=== PATIENT | female | born 1995 | race Caucasian/White ===

== ENCOUNTER 2019-01-30 07:55 | Emergency (ER) | payer BC ==
[~2019-01-30] VITALS: Ht 157.5 cm; Wt 46.0 kg
[2019-01-30 08:05] VITALS: Ht 157.5 cm; Wt 46.0 kg
[2019-01-30] MEDS ORDERED: KETOROLAC 15 MG INJ IV STA (08:17)
[2019-01-30] MEDS ORDERED: ONDANSETRON 4 MG INJ IV STA (08:17)
[2019-01-30] MEDS ORDERED: SOD CHLORIDE 0.9% 1,000 ML IV STA (08:17)
--- NOTE | 2019-01-30 08:26 | ERD ---
ER Documentation Chief Complaint Chief Complaint sore throat, feverish vomitting x 1 week HPI This is a 23-year-old generally healthy woman complaining of sore throat, congestion, cough, generalized weakness and tactile fevers x1 week. She denies vomiting or diarrhea but does have some nausea, she has had no blood per rectum or melena, no dysuria, no complaints of chest pain or shortness of breath, no rash, no recent antibiotic use or recent travel. Patient states she is prone to strep throat and thinks she may have strep throat today. ROS All systems reviewed and are negative except as per history of present illness. Medications Home Meds Active Scripts Ibuprofen* (Motrin*) 600 Mg Tab, 600 MG PO Q8 PRN for PAIN AND/OR INFLAMMATION, #30 TAB Prov:JONG BENTLEY MD 01/30/19 Cephalexin* (Keflex*) 500 Mg Capsule, 500 MG PO QID for 5 Days, CAP Prov:JONG BENTLEY MD 01/30/19 Allergies Allergies: Coded Allergies: No Known Allergy (Unverified , 01/30/19) FmHx Family History: No diabetes Physical Exam Vitals Vital Signs Date Temp Pulse Resp B/P (MAP) Pulse Ox O2 O2 Flow FiO2 Time Delivery Rate 01/30/19 98.5 63 20 105/52 96 Room Air 10:36 (69) 01/30/19 98.4 97 19 116/57 100 08:05 (76) Physical Exam GENERAL: Well-developed, well-nourished, well-hydrated, in no apparent distress, looks nontoxic in appearance HEENT: Moist mucous membranes, pink conjunctiva, no cervical spine tenderness or step-off deformities, no goiter, no jaundice or icterus, extraocular movements intact without pain. No submandibular induration, and no pharyngeal erythema NEURO: Alert and oriented 3, cranial nerves II through XII intact bilaterally, pupils equal round reactive to light, no focal deficits or facial asymmetry, sensation intact distally Strength 5/5 in upper and lower extremities bilaterally CARDIAC: Regular rate and rhythm, no murmurs rubs or gallops LUNGS: Clear bilaterally no wheezing crackles or stridor ABDOMEN: Soft nontender, no guarding, no rigidity, no rebound, no psoas sign no obturator sign. Normoactive bowel sounds SKIN: Warm and dry to touch, no abrasions, contusions, or hematomas, no lacerations, no ecchymosis, no target lesions, and without ulcers EXTREMITIES: No clubbing cyanosis or edema, calves are bilaterally symmetrical, no Homans sign, no popliteal cord sign. Distal pulses equal and bilateral PSYCH: Normal affect without agitation or irritability Result Diagram: 01/30/1922 01/30/19 0822 Results 24 hrs Laboratory Tests Test 01/30/19 08:21 01/30/19 08:22 01/30/19 08:25 Urine Color YELLOW Urine Clarity CLOUDY Urine pH 6.0 Urine Specific [place] 1.020 Urine Ketones NEGATIVE mg/dL Urine Nitrite NEGATIVE mg/dL Urine Bilirubin NEGATIVE mg/dL Urine Urobilinogen 1+ mg/dL Urine Leukocyte Esterase 1+ Neela/ul Urine Microscopic RBC 5 /HPF Urine Microscopic WBC 6 /HPF Urine Squamous Epithelial Cells MANY /HPF Urine Bacteria FEW /HPF Urine Mucus FEW /HPF Urine Hemoglobin 1+ mg/dL Urine Glucose NEGATIVE mg/dL Urine Total Protein NEGATIVE mg/dl White Blood Count 11.7 10^3/ul Red Blood Count 4.88 10^6/ul Hemoglobin 15.6 g/dl Hematocrit 47.7 % Mean Corpuscular Volume 97.7 fl Mean Corpuscular Hemoglobin 32.0 pg Mean Corpuscular 32.7 g/dl Hemoglobin Concent Red Cell Distribution Width 12.8 % Platelet Count 391 10^3/UL Mean Platelet Volume 8.5 fl Immature Granulocytes % 0.200 % Neutrophils % 57.0 % Lymphocytes % 33.1 % Monocytes % 7.0 % Eosinophils % 1.8 % Basophils % 0.9 % Nucleated Red Blood Cells % 0.0 /100WBC Immature Granulocytes # 0.020 10^3/ul Neutrophils # 6.7 10^3/ul Lymphocytes # 3.9 10^3/ul Monocytes # 0.8 10^3/ul Eosinophils # 0.2 10^3/ul Basophils # 0.1 10^3/ul Nucleated Red Blood Cells # 0.0 10^3/ul Sodium Level 144 mmol/L Potassium Level 4.0 mmol/L Chloride Level 105 mmol/L Carbon Dioxide Level 26 mmol/L Anion Gap 13 Blood Urea Nitrogen 11 mg/dl Creatinine 0.63 mg/dl Est Glomerular Filtrat > 60 mL/min Rate mL/min Glucose Level 86 mg/dl Calcium Level 10.0 mg/dl Total Bilirubin 0.5 mg/dl Direct Bilirubin 0.00 mg/dl Indirect Bilirubin 0.5 mg/dl Aspartate Amino 17 IU/L Transf (AST/SGOT) Alanine 12 IU/L Aminotransferase (ALT/SGPT) Alkaline Phosphatase 65 IU/L Total Protein 9.4 g/dl Albumin 5.2 g/dl Globulin 4.20 g/dl Albumin/Globulin Ratio 1.23 Lipase 32 U/L POC Beta HCG, Qualitative NEGATIVE Current Medications Medications Dose Sig/Jasvir Start Time Status Last (Trade) Ordered Route PRN Stop Time Admin Dose Reason Admin Sodium 1,000 ml @ Q1H STAT 01/30/19 DC 01/30/19 Chloride 1,000 mls/hr IV 08:17 08:30 01/30/19 09:16 Ondansetron 4 mg ONCE STAT 01/30/19 DC 01/30/19 HCl (Zofran IV 08:17 08:31 Inj) 01/30/19 08:24 Ketorolac 15 mg ONCE STAT 01/30/19 DC 01/30/19 Tromethamine IV 08:17 08:31 (Toradol) 01/30/19 08:24 Ceftriaxone 50 ml @ ONCE ONCE 01/30/19 DC 01/30/19 Sodium 100 mls/hr IVPB 10:00 09:52 01/30/19 10:29 Procedures/MDM IV line was established patient was placed on equipment monitor phototypesetting rhythm strip revealed a sinus rhythm at about 80 bpm with upright P and T waves. Patient was afebrile Administered 1 L normal saline IV, Toradol 15 mg IV, Zofran 4 mg IV CBC and electrolytes were normal, test negative, urinalysis was positive for infection. I administered ceftriaxone 1 g IV One AP view of the chest performed, read by me reveals no acute infiltrates, normal mediastinum, sharp costophrenic and cardiac borders, no air under the diaphragm. Otherwise unremarkable chest x-ray. Rapid strep test was negative Differential diagnoses considered, included but not limited to acute coronary syndrome, pulmonary embolism, aortic dissection, abdominal aortic aneurysm, sepsis, stroke, meningitis, encephalitis, pneumonia, appendicitis, cholecystit is, bowel obstruction, pyelonephritis, nephrolithiasis, cystitis, as well as metabolic, hematologic, and electrolyte abnormalities. As well as abscess, cellulitis, fractures, and dislocations. Patient feels much better at this time, and vital signs are normal, symptoms have improved. I did give strict instructions to return to the ED if symptoms continue or worsen, patient will otherwise follow-up with primary care physician. Patient understood instructions and agreed to plan. Disclaimer: Inadvertent spelling and grammatical errors are likely due to EHR/dictation software use and do not reflect on the overall quality of patient care. Also, please note that the electronic time recorded on this note does not necessarily reflect the actual time of the patient encounter. Departure Diagnosis: Primary Impression: Acute URI Additional Impression: Acute UTI Condition: Good JONG BENTLEY MD January 30, 2019 08:26
[2019-01-30] MEDS ORDERED: IBUP-1542 PO (09:43)
[2019-01-30] MEDS ORDERED: CEPH-443 PO (09:43)
[2019-01-30] MEDS ORDERED: CEFTRIAXONE 1 GM/50 ML (PMX) 50 ML IVPB ONE (10:00)
[2019-01-30 10:36] VITALS: BP 105/52; PULSE 63; RESP 20
== END 2019-01-30 11:08 | disposition home or self-care (01) ==
LOC: FTE 07:55
DX: J06.9 Acute upper respiratory infection, unspecified (principal); N39.0 Urinary tract infection, site not specified
CPT/HCPCS: 36415; 71045; 80053; 81001; 81025; 83690; 85025; 87880; 96361; 96365; 96375; 99284; J0696; J1885; J2405; J7030

== ENCOUNTER 2019-06-04 12:40 | Emergency (ER) | payer BC ==
[~2019-06-04] VITALS: Wt 45.4 kg
[~2019-06-04 12:40] MED LIST: CEPH-443 PO; IBUP-1542 PO; IBUP-1561 PO; ONDA4TAB14 PO
[2019-06-04 12:52] VITALS: BP 114/70; PULSE 70; RESP 20
[2019-06-04] MEDS ORDERED: ONDANSETRON (ODT) 4 MG TAB ODT STA (15:19)
[2019-06-04] MEDS ORDERED: HYDROCODONE/APAP (10/325) TAB PO ONE (15:30)
== END 2019-06-04 16:35 | disposition home or self-care (01) ==
LOC: FTE 12:40
DX: R10.31 Right lower quadrant pain (principal); N18.9 Chronic kidney disease, unspecified
CPT/HCPCS: 76775; 81003; 84703